=== PATIENT | male | born 1960 | race Caucasian/White ===

== ENCOUNTER 2018-02-19 11:28 | Inpatient (IN) | payer SELFPAY ==
[~2018-02-19] VITALS: Ht 160 cm; Wt 49.9 kg
[2018-02-19] MEDS ORDERED: FAMOTIDINE 20MG/2ML VIAL IV STA (12:21)
[2018-02-19] MEDS ORDERED: SODIUM CHLORIDE 0.9% 1,000 ML IV ONE (12:21)
[2018-02-19] MEDS ORDERED: ONDANSETRON HCL 4MG/2ML INJ IV STA (12:21)
[2018-02-19 12:50] LABS: HEMATOCRIT. 46.7 % (42.0-52.0); HEMOGLOBIN. 15.8 g/dL (14.0-18.0); MEAN CORPUSCULAR HEMOGLOBIN 31.6 pg (28.0-32.0); MEAN CORPUSCULAR VOLUME 93.3 fL (80.0-94.0); MEAN PLATELET VOLUME 7.9 fl (7.4-10.4); PLATELET 283 x1000/uL (130-400); RED CELL DISTRIBUTION WIDTH 13.4 % (11.6-14.6)
[2018-02-19 12:57] LABS: INR 1.1
[2018-02-19 12:58] LABS: CHLORIDE 100 mEq/L (98-107)
[2018-02-19] MEDS ORDERED: MORPHINE SULFATE 4 MG/ML CPJ (NOT FOR IM USE) IV ONE (13:00)
[2018-02-19] MEDS ORDERED: ONDANSETRON HCL 4MG/2ML INJ IV ONE (13:00)
[2018-02-19 13:05] LABS: ETHANOL BLOOD 48 mg/dL
[2018-02-19 13:18] LABS: PLATELET ESTIMATE NORMAL
[2018-02-19] MEDS ORDERED: LORAZEPAM 2MG/ML CPJ IV ONE (14:00)
[2018-02-19 14:44] LABS: CLARITY URINE CLEAR (CLEAR); COLOR URINE YELLOW (YELLOW); KETONES URINE 1+ (NEGATIVE); LEUKOCYTE ESTERASE URINE NEGATIVE (NEGATIVE); NITRITE URINE NEGATIVE (NEGATIVE); OCCULT BLOOD URINE TRACE (NEGATIVE); PH URINE 5.5 (4.5-8.0); PROTEIN URINE 1+ (NEGATIVE); SPECIFIC GRAVITY URINE 1.025 (1.005-1.030); UROBILINOGEN URINE 0.2 E.U./dL (0.2-1.0)
[2018-02-19] MEDS ORDERED: INSULIN REGULAR (HUMULIN R) 300UNITS/3ML IV ONE (15:00)
[2018-02-19 15:11] LABS: *AMPHETAMINES SCREEN URINE NEGATIVE (NEGATIVE); *BARBITURATES SCREEN URINE NEGATIVE (NEGATIVE); *BENZODIAZEPINES SCREEN URINE NEGATIVE (NEGATIVE); *COCAINE SCREEN URINE NEGATIVE (NEGATIVE); METHADONE URINE SCREEN NEGATIVE (NEGATIVE); OPIATES URINE SCREEN NEGATIVE (NEGATIVE)
[2018-02-19 15:12] LABS: CANNABINOID URINE SCREEN NEGATIVE (NEGATIVE); PHENCYCLIDINE URINE SCREEN NEGATIVE (NEGATIVE)
[2018-02-19] MEDS: MORPHINE SULFATE 4 MG/ML CPJ (NOT FOR IM USE) IV PRN ×3 (16:44→21:41)
[2018-02-19 16:55] VITALS: BP 164/89
[2018-02-19 17:00] VITALS: BP 141/79
[2018-02-19] MEDS: ONDANSETRON HCL 4MG/2ML INJ IV PRN (17:20)
[2018-02-19 20:00] VITALS: BP 155/81
[2018-02-19] MEDS: DEXT 5%/0.45% NACL 1000ML 1,000 ML IV SCH (20:41)
[2018-02-20] VITALS: BP 147/87
[2018-02-20 04:00] VITALS: BP 155/91
[2018-02-20] MEDS: ONDANSETRON HCL 4MG/2ML INJ IV PRN (05:34)
[2018-02-20] MEDS: MORPHINE SULFATE 4 MG/ML CPJ (NOT FOR IM USE) IV PRN (06:33)
[2018-02-20 06:52] LABS: HEMATOCRIT. 49.9 % (42.0-52.0); MEAN CORPUSCULAR HEMOGLOBIN 31.9 pg (28.0-32.0); MEAN CORPUSCULAR VOLUME 93.7 fL (80.0-94.0); MEAN PLATELET VOLUME 8.4 fl (7.4-10.4); PLATELET 209 x1000/uL (130-400); RED BLOOD CELL COUNT 5.32 mill/uL (4.7-6.1); RED CELL DISTRIBUTION WIDTH 13.3 % (11.6-14.6)
[2018-02-20 07:09] LABS: CHLORIDE 103 mEq/L (98-107)
[2018-02-20 07:18] LABS: LDL CHOLESTEROL 77 mg/dL (5-100)
[2018-02-20 07:22] LABS: HDL CHOLESTEROL 41 mg/dL (40-59)
[2018-02-20] MEDS ORDERED: LORAZEPAM 2MG/ML CPJ IV PRN (07:30)
[2018-02-20 08:00] VITALS: BP 169/94
[2018-02-20] MEDS ORDERED: DEXTROSE 50% WATER 50ML SYRINGE IV PRN (08:00)
[2018-02-20] MEDS: BLOOD SUGAR DIAGNOSTIC STRIP TEST SCH ×4 (08:11→20:23)
[2018-02-20] MEDS: INSULIN LISPRO 100 UNITS/ML SUBCUT SCH ×4 (08:12→20:37)
[2018-02-20] MEDS ORDERED: INSULIN LISPRO 100 UNITS/ML SUBCUT SCH (08:30)
[2018-02-20] MEDS ORDERED: CLONIDINE HCL 0.1MG/24HR PATCH TD SCH (09:00)
[2018-02-20 12:00] VITALS: BP 136/88
[2018-02-20] MEDS: METOPROLOL TARTRATE 5MG/5ML VIAL IV NR ×2 (12:02→17:02)
[2018-02-20] MEDS: PANTOPRAZOLE SODIUM 40 MG/VIAL IV SCH (12:02)
[2018-02-20] MEDS: LORAZEPAM 2MG/ML CPJ IV PRN (14:59)
[2018-02-20 16:00] VITALS: BP 131/89
[2018-02-20] MEDS: DEXT 5%/0.45% NACL 1000ML 1,000 ML IV SCH (16:53)
[2018-02-20] MEDS: METOPROLOL TARTRATE 5MG/5ML VIAL IV PRN (20:22)
[2018-02-20] MEDS: ACETAMINOPHEN 650MG SUPP PR PRN (20:22)
[2018-02-20 20:40] VITALS: BP 123/81
[2018-02-20] MEDS: INSULIN GLARGINE UD 100 UNITS/ML SYR SUBCUT SCH (21:18)
[2018-02-21] VITALS (7 sets, daily range): BP systolic 107–141; BP diastolic 67–84
[2018-02-21 00:21] LABS: ATYPICAL LYMPHOCYTES 1; PLATELET ESTIMATE NORMAL
[2018-02-21] MEDS: LEVOFLOXACIN 500MG PREMIX 100 ML IV SCH (01:00)
[2018-02-21] MEDS: MORPHINE SULFATE 4 MG/ML CPJ (NOT FOR IM USE) IV PRN (01:00)
[2018-02-21] MEDS: METRONIDAZOLE 500 MG PREMIX 100 ML IV SCH ×3 (01:00→17:39)
[2018-02-21] MEDS: ACETAMINOPHEN 650MG SUPP PR PRN (03:06)
[2018-02-21] MEDS: METOPROLOL TARTRATE 5MG/5ML VIAL IV PRN ×3 (03:06→18:29)
[2018-02-21] MEDS: BLOOD SUGAR DIAGNOSTIC STRIP TEST SCH ×4 (06:00→21:29)
[2018-02-21] MEDS: DEXT 5%/0.45% NACL 1000ML 1,000 ML IV SCH ×2 (06:00→19:33)
[2018-02-21] MEDS: PANTOPRAZOLE SODIUM 40 MG/VIAL IV SCH (08:13)
[2018-02-21] MEDS: INSULIN LISPRO 100 UNITS/ML SUBCUT SCH ×4 (08:21→21:38)
[2018-02-21] MEDS: INSULIN GLARGINE UD 100 UNITS/ML SYR SUBCUT SCH (21:41)
[2018-02-22] VITALS (7 sets, daily range): BP systolic 110–136; BP diastolic 64–80
[2018-02-22] MEDS: METRONIDAZOLE 500 MG PREMIX 100 ML IV SCH ×3 (00:33→17:44)
[2018-02-22] MEDS: LEVOFLOXACIN 500MG PREMIX 100 ML IV SCH (02:00)
[2018-02-22] MEDS: ONDANSETRON HCL 4MG/2ML INJ IV PRN (03:35)
[2018-02-22] MEDS: LORAZEPAM 2MG/ML CPJ IV PRN (03:36)
[2018-02-22 05:48] LABS: CHLORIDE 108 mEq/L (98-107)
[2018-02-22 06:13] LABS: HEMATOCRIT. 37.8 % (42.0-52.0); HEMOGLOBIN. 12.9 g/dL (14.0-18.0); MEAN CORPUSCULAR HEMOGLOBIN 32.1 pg (28.0-32.0); MEAN CORPUSCULAR VOLUME 93.9 fL (80.0-94.0); MEAN PLATELET VOLUME 9.2 fl (7.4-10.4); PLATELET 114 x1000/uL (130-400); RED BLOOD CELL COUNT 4.02 mill/uL (4.7-6.1); RED CELL DISTRIBUTION WIDTH 13.3 % (11.6-14.6)
[2018-02-22] MEDS: BLOOD SUGAR DIAGNOSTIC STRIP TEST SCH ×4 (07:20→21:49)
[2018-02-22] MEDS: INSULIN LISPRO 100 UNITS/ML SUBCUT SCH ×4 (07:50→21:47)
[2018-02-22] MEDS: FAMOTIDINE 20MG/2ML VIAL IV SCH (08:32)
[2018-02-22] MEDS: DEXT 5%/0.45% NACL 1000ML 1,000 ML IV SCH (08:53)
[2018-02-22 09:01] LABS: PLATELET ESTIMATE DECREASED
[2018-02-22] MEDS: ACETAMINOPHEN 650MG SUPP PR PRN (21:37)
[2018-02-22] MEDS: INSULIN GLARGINE UD 100 UNITS/ML SYR SUBCUT SCH (21:47)
[2018-02-23] MEDS: DEXT 5%/0.45% NACL 1000ML 1,000 ML IV SCH ×2 (00:44→11:33)
[2018-02-23] MEDS: METRONIDAZOLE 500 MG PREMIX 100 ML IV SCH ×2 (00:44→08:00)
[2018-02-23] MEDS ORDERED: LEVOFLOXACIN 250MG PREMIX 50 ML IV SCH (01:00)
[2018-02-23 03:56] VITALS: BP 120/72
[2018-02-23 07:00] LABS: CHLORIDE 103 mEq/L (98-107)
[2018-02-23 07:15] LABS: BASOPHILS % 0.2 % (0.0-2.0); EOSINOPHILS % 0.1 % (0.0-5.0); HEMATOCRIT. 36.1 % (42.0-52.0); HEMOGLOBIN. 12.2 g/dL (14.0-18.0); LYMPHOCYTES % 13.6 % (20.0-50.0); MEAN CORPUSCULAR HEMOGLOBIN 31.6 pg (28.0-32.0); MEAN CORPUSCULAR VOLUME 93.7 fL (80.0-94.0); MEAN PLATELET VOLUME 8.9 fl (7.4-10.4); MONOCYTES % 7.2 % (2.0-8.0); NEUTROPHILS % 78.9 % (40.0-76.0); PLATELET 135 x1000/uL (130-400); RED BLOOD CELL COUNT 3.86 mill/uL (4.7-6.1); RED CELL DISTRIBUTION WIDTH 13.3 % (11.6-14.6)
[2018-02-23] MEDS: BLOOD SUGAR DIAGNOSTIC STRIP TEST SCH ×2 (07:20→11:44)
[2018-02-23] MEDS: INSULIN LISPRO 100 UNITS/ML SUBCUT SCH ×2 (07:41→11:44)
[2018-02-23] MEDS: FAMOTIDINE 20MG/2ML VIAL IV SCH (07:59)
[2018-02-23 08:00] VITALS: BP 121/60
[2018-02-23 12:00] VITALS: BP 112/56
[2018-02-23 13:26] VITALS: BP 120/59
== END 2018-02-23 14:45 | disposition home or self-care (01) | DRG 282 ==
LOC: ER 11:28 → 6EST 14:09 → SUPCPDRO 14:13 → EDBEDREQSVC 14:17 → EDBEDREQ 14:17 → EDBEDREQTM 14:17 → ENRESERV 14:31 → CANBEDREQ 16:18 → 6EST 17:51 → 6WST 02-20 15:56
PROVIDERS: ADMIT Hospitalist; ATTEND Hospitalist
DX: K85.90 Acute pancreatitis without necrosis or infection, unspecified (principal); E11.65 Type 2 diabetes mellitus with hyperglycemia; H91.90 Unspecified hearing loss, unspecified ear; Z91.14 Patient's other noncompliance with medication regimen; Z91.19 Patient's noncompliance with other medical treatment and regimen
CPT/HCPCS: 36415; 74176; 80053; 80061; 80305; 81003; 82962; 83690; 85025; 85610; 87040; 93005; 96361; 96374; 96375; 99285; C9113; G0482; J1815; J1956; J2060; J2270; J2405; J3490; J7030